=== PATIENT | female | born 1965 | race Caucasian/White ===

== ENCOUNTER 2021-10-28 07:14 | Day surgery (SDC) | payer OTHER, BC ==
[~2021-10-28 07:14] MED LIST: ACETAMINOPHEN325 M1 PO; BENADRYL25 MG PO; BYDUREON P2 MG/0.65 SQ; DILTIAZEM 24HR360 MG PO; FENOFIBRATE145 MG PO; GLUCOPHAGE500 MG PO; JARDIANCE25 MG; LIPITOR10 MG PO; OZEMPIC0.25 MG/0. SQ; REPAGLINIDE2 MG PO; SUDAFED 12 HOU120 MG PO; TOUJEO SOL300 UNIT/1 SQ; TRICOR145 MG PO; ZESTRIL40 MG PO
--- NOTE | 2021-10-28 09:39 | NUR ---
10/28/21 0939 Myesha Carrion 0921 PT ARRIVED IN PACU SLEEPY WITH NO C/O'S. ABD SOFT AND PASSING FLATUS. 0939 RESTING. REU.
--- NOTE | 2021-10-29 05:52 | OR ---
[facility] [address], [place] [address] Signed DATE OF OPERATION: 10/28/2021 SURGEON: Kimberly Hermosillo MD PREOPERATIVE DIAGNOSES: 1. Paternal grandmother with colon cancer at age 46. 2. Father with colon polyps in his early 60s. POSTOPERATIVE DIAGNOSES: 1. 7 mm polyp at proximal left colon. 2. Long redundant colon. PROCEDURE: Colonoscopy with snare polypectomy. ESTIMATED BLOOD LOSS: None. INDICATIONS: Milagro is a 56-year-old female who came to us for a followup colonoscopy. We know her paternal grandmother was diagnosed with colon cancer at age 46. She a few years later from the colon cancer. Her father also had colonic polyps removed in his early 60s. I helped her with a colonoscopy back in 2016 at the age of 49. A single biopsy was removed, but it came back unremarkable. At that time, she did well with Versed and fentanyl except she had rather significant nausea and vomiting the rest of the day. Consequently, we did give her Zofran and Phenergan preop on this occasion. Nevertheless, she has a very long redundant colon. It was very difficult today to make our way into her cecum. It took additional sedation abdominal compression and rotating her on the table and even it was quite difficult. I think in the future she really should have monitored anesthesia care with propofol. We had asked her to follow up in 5 years for repeat colonoscopy. She currently has no lower GI complaints. In the office, I gave her a pamphlet on colonoscopy. She recalls the nature of the test. There is risk including, but not limited to gas bloating, crampy abdominal pain, bleeding, perforation requiring surgery, and missed diagnosis. She had expressed understanding and wished to proceed. PROCEDURE NOTE: Milagro was taken into our endoscopy suite and placed in the left lateral decubitus position. She was given a total of 175 mcg of fentanyl and 5 mg of Versed to cover the case. Even then, it was quite difficult. She has a very long redundant colon. It was Electronically Signed By: KIMBERLY HERMOSILLO MD 10/29/21 0552 PATIENT NAME: MILAGRO VALEDS OPERATIVE REPORT DATE OF : 63 REPORT #: [id number] PHYSICIAN: KIMBERLY HERMOSILLO MD PCP: TALISHA BRUMFIELD PA-C REPORT IS CONFIDENTIAL AND NOT TO BE RELEASED WITHOUT AUTHORIZATION [facility] [address], [place] [address] Signed amazing to watch the light of the camera as it traveled around her abdominal cavity. We had to rotator her into the supine position. We then put her back in the left lateral decubitus position and finally made it to the cecum. Even then, she was frequently awake and moaning and frequently her blood pressure was low. It is quite clear she needs monitored anesthesia care in the future with propofol infusion. Also, she would benefit from some additional bowel prep. The scope was then slowly withdrawn. We took pictures throughout for photodocumentation. We took we used the snare to remove the 7 mm polyp and what we think is a proximal left colon. Again, she has a very long redundant colon. We did not see diverticulosis. The rectum was unremarkable. Upon retroflexion of the scope, we did not see any pathology above the anal canal. After this, the gas was suctioned out and the colonoscope removed. Overall, Milagro tolerated the procedure as above. RECOMMENDATIONS: I am going to see Milagro back in my office in 7 to 14 days to review her results. She will stay on the five year plan. She will need some additional bowel prep in the future. She does suffer with significant postoperative nausea and vomiting after these procedures. It may be from her long redundant colon. In addition, she would really benefit from monitored anesthesia care with propofol in the future. Kimberly Hermosillo MD ALB/MODL /[id number] cc: MD Dr. Steven Feliciano Copies: KIMBERLY HERMOSILLO MD ~ Electronically Signed By: KIMBERLY HERMOSILLO MD 10/29/21 0552 PATIENT NAME: MILAGRO VALDES OPERATIVE REPORT DATE OF : 63 REPORT #: [id number] PHYSICIAN: KIMBERLY HERMOSILLO MD PCP: TALISHA BRUMFIELD PA-C REPORT IS CONFIDENTIAL AND NOT TO BE RELEASED WITHOUT AUTHORIZATION
--- NOTE | 2021-10-30 11:52 | PATH ---
[facility] [address], [place] [address] Signed SPECIMEN(S): A PROXIMAL LEFT COLON POLYP SPECIMEN SOURCE: A. PROXIMAL LEFT COLON POLYP CLINICAL HISTORY: Colonoscopy. Family history of colon CA and polyps, personal history of colon polyp. FINAL PATHOLOGIC DIAGNOSIS: Proximal left colon polyp: - Slight features suggestive of tubular adenoma (one fragment). JVR:sm:C2NR MICROSCOPIC EXAMINATION: Histologic sections of all submitted blocks are examined by light microscopy. These findings, together with the gross examination, support the pathologic diagnosis. GROSS DESCRIPTION: The specimen, labeled "DB, proximal left colon polyp," is received in formalin and consists of one guajardo soft tissue fragment that measures 0.5 cm in greatest dimension. The specimen is bisected and entirely submitted in cassette (A1). JS (under the direct supervision of a pathologist) The Gross Description was prepared using a voice recognition system. The report was reviewed for accuracy; however, sound-alike word errors, addition and/or deletions may occur. If there is any question about this report, please contact Client Services. PERFORMING LABORATORY: The technical component was performed by [facility], [address] [place] [id number] (CLIA# [id number]). Professional interpretation was performed by [facility], [address] [place] [id number] (CLIA#: [id number]). Diagnostician: Alan Ge MD Pathologist Electronically Signed 10/30/2021 PATIENT NAME: IMMANUEL VALDES PATHOLOGY DATE OF : 63 REPORT #: [id number] PHYSICIAN: GARCIA BRUNSON PCP: TALISHA BRUMFIELD PA-C REPORT IS CONFIDENTIAL AND NOT TO BE RELEASED WITHOUT AUTHORIZATION [address] [place], [place] [address] Signed Copies: ~ PATIENT NAME: IMMANUEL VALDES PATHOLOGY DATE OF : 63 REPORT #: [id number] PHYSICIAN: GARCIA PATHOLOGY PCP: TALISHA BRUMFIELD PA-C REPORT IS CONFIDENTIAL AND NOT TO BE RELEASED WITHOUT AUTHORIZATION
== END 2021-10-28 10:11 | disposition home or self-care (01) ==
LOC: DS 07:14
PROVIDERS: ATTEND Colon & Rectal Surgery
PROC: 0DBG8ZX Excision of Left Large Intestine, Via Natural or Artificial Opening Endoscopic, Diagnostic (ICD-10-PCS; principal; 2021-10-28 08:15)
DX: Z12.11 Encounter for screening for malignant neoplasm of colon (principal); D12.4 Benign neoplasm of descending colon; Z80.0 Family history of malignant neoplasm of digestive organs; E11.9 Type 2 diabetes mellitus without complications; I10 Essential (primary) hypertension; E78.1 Pure hyperglyceridemia; Z79.84 Long term (current) use of oral hypoglycemic drugs; Z88.8 Allergy status to other drugs, medicaments and biological substances; Q43.8 Other specified congenital malformations of intestine
CPT/HCPCS: 99153; G0500; J2250; J2405; J2550; J3010

== ENCOUNTER 2022-10-06 07:41 | Day surgery (SDC) | payer OTHER, BC ==
[2022-09-30 14:57] VITALS: BP 141/79
[~2022-10-06] VITALS: Ht 170.2 cm; Wt 72.7 kg
[~2022-10-06 07:41] MED LIST changes: -TOUJEO SOL300 UNIT/1 SQ; +TOUJEO SOL300 UNIT/1 SUB-Q
[2022-10-06 08:11] VITALS: BP 132/61
--- NOTE | 2022-10-06 08:37 | NUR ---
0830 3rd nasal spray done. [facility]
--- NOTE | 2022-10-06 10:41 | NUR ---
10/06/22 1041 Sandeep,Ivonne 0924 PT ARRIVED TO PACU ON RA, PT WAKES AND REPORTS 7/10 PAIN AND "SOME NAUSEA". PACKING IN NOSE AND SMALL AMOUNT OF RED DRY DRAINAGE NOTED IN NOSTRILS, WITH STING AND WHITE DRESSING FOR PACKING. 0959 NAUSEA MEDICATION GIVEN, COOL CLOTHE PLACED ON FOREHEAD. 1010 PAIN MEDICATION COMFIRMED WITH MD AND LONG DISTANCE BILLING OPERATOR AND ORDER PLACED. 1011 PAIN MEDICATION GIVEN PER EMAR. PT REPORTS 7/10 PAIN AND NAUSEA IS THE SAME. 1025 PT RESTING IN BED WITH COOL CLOTHE OVER HER EYES. 1037 PT REPORTS PAIN IS "A LITTLE BETTER," 6/10. "NAUSEA IS DOING GOOD". PLAN OF CARE DISCUSSED.
[2022-10-06 10:48] VITALS: BP 136/66
--- NOTE | 2022-10-06 10:54 | NUR ---
PT COMFORTABLE. LIGHTS LOW. NO FAMILY PRESENT. DR MURDOCK IN TO SEE PT.
--- NOTE | 2022-10-06 11:05 | OR ---
[facility] [address], [place] [address] Signed DATE OF OPERATION: 10/06/2022 SURGEON: Deonte Bhandari MD PREOPERATIVE DIAGNOSIS: Inferior turbinate hypertrophy, bilateral. POSTOPERATIVE DIAGNOSIS: Inferior turbinate hypertrophy, bilateral. PROCEDURE: Cautery bilateral inferior turbinate, submucosal. ANESTHESIA: General orotracheal, RITUAL CIRCUMCISER, Ian. PREOPERATIVE HISTORY: Milagro is a 57-year-old lady with chronic nasal congestion, sinus infections. CAT scan recently has been found to be normal. Office exam had shown inferior turbinate hypertrophy, unresponsive to appropriate medications. She is taken to the operating room for the above-mentioned procedures. OPERATIVE PROCEDURE AND FINDINGS: After informed consent, the patient was taken to the operating room, placed in the supine position where general orotracheal anesthesia was induced. The patient and procedure were verified. The patient was repositioned. The patient received preoperative intranasal oxymetazoline and intravenous Ancef. Headlight speculum exam of the nasal cavity showed good decongestion of the inferior turbinates with small septal spur on the right, partially obstructive. The inferior turbinates were then cauterized with a long handle needle point cautery starting on the right side. Multiple transmucosal passes on the inferior turbinate on the medial inferior surface starting anteriorly extending all the way back posteriorly. Excellent decongestion of the turbinate was obtained. Minimal bleeding. Same procedure on the left inferior turbinate. Packing was then placed, trimmed Merocel equal amount one piece each side coated with Neosporin tied anteriorly over a pad. The pharynx was suctioned clear of blood secretions. Hemostasis was verified. The patient was then awakened, extubated, transported to the recovery room in good condition. No complications. BLOOD LOSS: Minimal. Electronically Signed By: DEONTE BHANDARI MD 10/06/22 1105 PATIENT NAME: MILAGRO VALDESINE OPERATIVE REPORT DATE OF : 63 REPORT #: [id number] PHYSICIAN: DEONTE BHANDARI MD PCP: TALISHA BRUMFIELD PA-C REPORT IS CONFIDENTIAL AND NOT TO BE RELEASED WITHOUT AUTHORIZATION [facility] [address] [place] [id number] Signed SPECIMEN: No specimen. DRAINS: No drains. PACKING: One piece of Merocel each nostril. Deonte Bhandari MD GC/MODL /[id number] Copies: ~ Electronically Signed By: DEONTE BHANDARI MD 10/06/22 1105 PATIENT NAME: SAMUELSHERLEYMILAGRO OPERATIVE REPORT DATE OF : 63 REPORT #: [id number] PHYSICIAN: DEONTE BHANDARI MD PCP: TALISHA BRUMFIELD PA-C REPORT IS CONFIDENTIAL AND NOT TO BE RELEASED WITHOUT AUTHORIZATION
[2022-10-06 11:45] VITALS: BP 135/64
--- NOTE | 2022-10-06 12:11 | NUR ---
1145 PT READY TO GO HOME HAS TAKEN FLUIDS WELL 300MLS. AMB WELL DENIES ANY PROBLEMS. VOIDS QS. DCD WITH AMILY.
== END 2022-10-06 11:50 | disposition home or self-care (01) ==
LOC: OPS 07:41 → DS 07:41 → OPS 08:30 → DS 09:30 → OPS 09:30
PROVIDERS: ATTEND Otolaryngology
PROC: 095L0ZZ Destruction of Nasal Turbinate, Open Approach (ICD-10-PCS; principal; 2022-10-06 09:00)
DX: J34.3 Hypertrophy of nasal turbinates (principal); E11.9 Type 2 diabetes mellitus without complications; I10 Essential (primary) hypertension; J45.909 Unspecified asthma, uncomplicated; J32.9 Chronic sinusitis, unspecified; Z79.84 Long term (current) use of oral hypoglycemic drugs; Z88.5 Allergy status to narcotic agent
CPT/HCPCS: A9270; J0131; J0690; J0780; J1885; J2001; J2405; J2704; J3010